=== PATIENT | female | born 1980 | race Caucasian/White ===

== ENCOUNTER 2016-09-16 11:03 | Emergency (ER) | payer MEDICARE, MEDICAID ==
[~2016-09-16] VITALS: Ht 172.7 cm; Wt 77.1 kg
[2016-09-16] MEDS ORDERED: SODIUM CHLORIDE 0.9% 1,000 ML IV ONE (11:12)
[2016-09-16] MEDS ORDERED: MORPHINE SULF INJ 2 MG/ML SYRINGE 1ML IV ONE (11:15)
[2016-09-16] MEDS ORDERED: LORazepam 2MG/ML-1ML VIAL IV ONE (11:15)
[2016-09-16] MEDS ORDERED: ASPirin 81 mg TAB PO ONE (11:15)
[2016-09-16 12:20] LABS: Basophils # (auto) 0 uL; Basophils % (auto) 0.7 % (0.0-2.0); Eosinophils # (auto) 0.1 uL; Eosinophils % (auto) 1.3 % (0.0-7.0); Hematocrit 44.5 % (36.0-46.0); Hemoglobin 15.6 g/dL (12.2-16.2); Lymphocytes # (auto) 2.4 uL; Lymphocytes % (auto) 40.1 % (10.0-50.0); Mean Corpuscular Hemoglobin 31.6 pg (28.0-32.0); Mean Corpuscular Hgb Conc. 35.2 g/dL (32.0-36.0); Mean Corpuscular Volume 89.8 fL (80.0-100.0); Monocytes # (auto) 0.3 uL; Monocytes % (auto) 5.4 % (0.0-12.0); Neutrophils # (auto) 3.1 uL; Neutrophils % (auto) 52.5 % (37.0-80.0); Platelet Count (auto) 544 10^3/uL (140-450); Red Cell Distribution Width 17.2 % (11.6-16.0); White Blood Cell 5.9 10^3/uL (4.4-10.8)
[2016-09-16 12:58] LABS: B-Type Natriuretic Peptide 0.97 pg/mL (0-100)
[2016-09-16 13:01] LABS: Albumin 4.2 g/dL (3.4-5.0); Alkaline Phosphatase 62 U/L (45-117); Anion Gap 10 (5-15); Aspartate Aminotransferase 29 U/L (15-37); Bilirubin, Total 0.8 mg/dL (0.2-1.0); Blood Urea Nitrogen 18 mg/dL (7-18); Calcium 8.6 mg/dL (8.5-10.1); Carbon Dioxide 21 mmol/L (21-32); Chloride 106 mmol/L (98-107); GFR African American 103 mL/min; GFR Non-African American 85 mL/min; Glucose 137 mg/dL (74-106); Magnesium 2.8 mg/dL (1.6-2.6); Potassium 3.9 mmol/L (3.5-5.1); Sodium 137 mmol/L (136-145); Temperature: 24.6 C (20.0-25.0); Total Protein 8.6 g/dL (6.4-8.2)
[2016-09-16 14:00] VITALS: BP 137/78
[2016-09-16] MEDS ORDERED: LORazepam 0.5 MG TAB PO ONE (14:00)
[2016-09-16] MEDS ORDERED: ONDANSETRON ODT 4 MG TAB PO ONE (14:00)
== END 2016-09-16 14:28 | disposition home or self-care (01) ==
LOC: ER 11:08
DX: R07.89 Other chest pain (principal); R11.2 Nausea with vomiting, unspecified
CPT/HCPCS: 36415; 71010; 80053; 83735; 83880; 84484; 85025; 93005; 94761; 99285; Q0162